=== PATIENT | male | born 1970 | race Caucasian/White ===

== ENCOUNTER 2020-11-26 17:23 | Inpatient (IN) | payer MEDICAID, SELFPAY ==
[2020-11-26 17:24] VITALS: BP 119/84; PULSE 102; RESP 19; TEMP 35.8; O2SAT 90; BMI 23.5
[2020-11-26 19:04] VITALS: BP 111/63; BP 113/83; PULSE 83; PULSE 86; RESP 13; RESP 16; O2SAT 98
[2020-11-26 19:05] LABS: Absolute Lymphocyte Count 3.03 X10^3/uL (0.83-4.51); Absolute Neutrophil Count 5.4 X10^3/uL (2.0-7.7); Basophil# 0.07 X10^3/uL; Basophil% 0.7 % (0-1); Eosinophil# 0.37 X10^3/uL; Eosinophils% 3.8 % (0-5); Hematocrit 46.3 % (40-54); Hemoglobin 15.4 g/dL (13.0-16.5); Lymphocyte # 3.03 X10^3/ul (0.83-4.51); Lymphocyte % 30.9 % (19-41); Mean Corp Hgb Conc 33.3 g/dL (32-36); Mean Corpuscular Hgb 32.2 pg (27.0-32.0); Mean Corpuscular Volume 96.7 fL (80-94); Mean Platelet Vol. 9.4 fl (6.2-12.0); Monocyte# 0.92 X10^3/uL; Monocyte% 9.4 % (0-10); NRBC Flagged by Analyzer 0 % (0-5); Neutrophil # 5.38 X10^3/uL (2.7-7.7); Neutrophil % 54.9 % (47-70); Platelet Count 354 K/mm3 (150-450); RBC Distribution Width SD 53.8 fl (35.1-43.9); Red Blood Count 4.79 M/mm3 (4.6-6.2); White Blood Count 9.8 K/mm3 (4.4-11.0)
[2020-11-26] MEDS: Phenobarbital 32.4 MG Tablet 97.2 MG PO (19:09)
[2020-11-26] MEDS: LORazepam 2 MG/ML Syringe 1 MG IV (19:09)
[2020-11-26 19:20] LABS: ALB/GLOB Ratio 0.9 RATIO (0.9-2.4); AST(SGOT) 19 U/L (15-37); Alanine Aminotransfer ALT/SGPT 26 U/L (16-61); Albumin, Serum 3.7 g/dL (3.2-5.0); Alkaline Phosphatase 67 U/L (45-117); Anion Gap 6 (5-15); BUN 5 mg/dL (7-18); BUN/Creat Ratio 6.1 RATIO (10-20); Calcium,Total 8.8 mg/dL (8.5-10.1); Chloride 100 mmol/L (98-107); Creatinine, Serum 0.81 mg/dL (0.70-1.30); EST Glomerular Filtration Rate 106 mL/min (>60); Est Glom Filt Rate - Afr Amer 128 mL/min (>60); Estimated Creatinine Clearance 106.68 ml/min; Globulin 4.1 g/dL (2.2-4.2); Glucose 76 mg/dL (74-106); Potassium 3.4 mmol/L (3.5-5.1); Protein, Total 7.8 g/dL (6.4-8.2); Sodium Level 135 mmol/L (136-145)
[2020-11-26 19:32] LABS: Alcohol, Blood (Medical)-Serum < 3.0 mg/dL
[2020-11-26 20:07] LABS: International Normalized Ratio 1.1; Prothrombin Time (Protime)PT. 13.1 SECONDS (11.7-14.9)
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
[2020-11-26 20:46] LABS: Amphetamine Urine VISTA POSITIVE (<1000 ng/mL); Barbiturate Urine VISTA NEGATIVE (< 200 ng/mL); Benzodiazepine Urine VISTA NEGATIVE (< 200 ng/mL); Cocaine Urine VISTA NEGATIVE (< 300 ng/mL); Ecstacy Urine VISTA NEGATIVE (< 500 ng/mL); Methadone Urine VISTA NEGATIVE (< 300 ng/mL); PCP Urine VISTA NEGATIVE (< 25 ng/mL); THC Urine VISTA POSITIVE (< 50 ng/mL); Vista UDS pH Range 6
--- NOTE | 2020-11-26 20:51 | VDLE_ITS ---
Reason For Study: Swelling Procedure LEFT This is a venous duplex using B-mode, color GSV is normal. flow and spectral Doppler. CFV is compressible, spontaneous, phasic, Exam performed portable in patient room. competent, and demonstrates normal A preliminary report was called and/or faxed augmentation. to [facility]. FV is compressible, spontaneous, phasic, competent and demonstrates normal augmentation. POP V is compressible, spontaneous, phasic, competent and demonstrates normal augmentation. T/P Trunk is compressible. PTV is compressible. LT PerV is compressible. Nonvascularized structure noted in the left popliteal space that measures approximently 1.27 x 1.18 x 4.04 cm. VL/Venous Duplex US, Unilateral Interpretation Summary There is no evidence of left lower extremity deep vein thrombosis. Left great s aphenous vein appears patent and compressible segmentally. None vascular left popliteal space cystic structure 1.27 x 1.18 x 4.04 cm consistent with a Palacios's cyst. Clinical correlation would be appropr iate. Ordering Physician: Tony Jay Performed By: Rossy Roca RVT
[2020-11-26 21:02] VITALS: BP 103/70; PULSE 83; RESP 14; TEMP 35.8; O2SAT 97
[2020-11-26 21:27] VITALS: BMI 23.4
--- NOTE | 2020-11-26 21:28 | CM.ED ---
SOCIAL WORK Referral Source: Self-referral Reason for Consult: Substance Abuse- requesting detox from alcohol and heroin Patient presents to ER for detox. Patient reported last drink was at 2am. Patient admitted to snorting heroin and fentanyl. Patient completed RAMP agreement with nursing and denies any questions or concerns. Call to [facility] Treatment NavigatorAleyda to update on patient's admission. Plan: Admit to RAMP Eze Tamez, INCIDENT RESPONSE LEAD, CONTINUOUS MINER OPERATOR HELPER
[2020-11-26 21:35] VITALS: BP 110/74; PULSE 84; RESP 16; TEMP 36.9; O2SAT 97
[2020-11-26] MEDS: Buprenorphine HCl 2 MG TAB.SUBL SL (22:43)
[2020-11-26] MEDS: Phenobarbital 32.4 MG Tablet 64.8 MG PO (22:43)
[2020-11-27] VITALS (7 sets, daily range): BP systolic 114–128; BP diastolic 68–80; PULSE 76–91; RESP 16–18; TEMP 36.6–37; O2SAT 96–100
[2020-11-27] MEDS: Phenobarbital 32.4 MG Tablet 64.8 MG PO ×6 (03:05→22:34)
[2020-11-27] MEDS: Buprenorphine HCl 2 MG TAB.SUBL SL ×3 (06:43→22:34)
--- NOTE | 2020-11-27 07:14 | PCM.PN.HOSP ---
Subjective Subjective No new issues overnight since admission. CIWA scores this morning at around 12 Objective Data Objective Data Vital Signs: Vital Signs Temp Pulse Resp BP Pulse Ox 98.1 F 91 18 125/80 H 98 11/27/20 06:37 11/27/20 06:37 11/27/20 06:37 11/27/20 06:37 11/27/20 06:37 Oxygen Delivery Method Room Air Weight: 158 lb 8.198 oz Body Mass Index (BMI) 23.4 Intake & Output: Intake and Output for Last 24 Hours 11/26/20 11/27/20 11/28/20 03:59 03:59 03:59 Output Total 600 / 600 Balance -600 / -600 Lab / Micro Data Result Diagrams: 11/26/20 18:50 11/26/20 18:50 Labs: Laboratory Results - last 24 hr 11/26/20 18:50: WBC 9.8, RBC 4.79, Hgb 15.4, Hct 46.3, MCV 96.7 H, MCH 32.2 H, MCHC 33.3, RDW Std Deviation 53.8 H, RDW Coeff of Vincenzo 15.0 H, Plt Count 354, MPV 9.4, Immature Gran % (Auto) 0.300, Neut % (Auto) 54.9, Lymph % (Auto) 30.9, Hamblen % (Auto) 9.4, Eos % (Auto) 3.8, Baso % (Auto) 0.7, Absolute Neuts (auto) 5.4, Absolute Lymphs (auto) 3.03, Nucleated RBC % 0 11/26/20 18:50: PT 13.1, INR 1.1 11/26/20 18:50: Sodium 135 L, Potassium 3.4 L, Chloride 100, Carbon Dioxide 29.0, Anion Gap 6, BUN 5 L, Creatinine 0.81, Estim Creat Clear Calc 106.68, Est GFR (MDRD) Af Amer 128, Est GFR (MDRD) Non-Af 106, BUN/Creatinine Ratio 6.1 L, Glucose 76, Calcium 8.8, Total Bilirubin 0.40, AST 19, ALT 26, Alkaline Phosphatase 67, Total Protein 7.8, Albumin 3.7, Globulin 4.1, Albumin/Globulin Ratio 0.9 11/26/20 18:50: Ethyl Alcohol < 3.0 11/26/20 20:17: Urine Opiates Screen NEGATIVE, Urine Methadone Screen NEGATIVE, Ur Barbiturates Screen NEGATIVE, Ur Phencyclidine Scrn NEGATIVE, Ur Amphetamines Screen POSITIVE H, U Methamphetamin-MDMA NEGATIVE, U Benzodiazepines Scrn NEGATIVE, Urine Cocaine Screen NEGATIVE, U Cannabinoids Screen POSITIVE H, Ur Drug Screen Comment Rhythm Strip Rhythm Strip: Sinus Tach Rate: 105 Ectopy: None Physical Exam Const alert, oriented x3 and no apparent distress General Appearance: cooperative HEENT normocephalic and moist oral mucous membranes Eyes PERRL, EOMs intact bilaterally and conjunctivae normal Neck supple and no JVD Resp normal respiratory effort, no retractions, no use of accessory muscles and clear to auscultation bilaterally Auscultation: Negative for crackles, rales, rhonchi or wheezes Cardio regular rate, regular rhythm, S1 normal heart sound, S2 normal heart sound and no murmurs GI soft to palpation, non-tender and non-distended; Negative for hepatosplenomegaly Extremity General Extremity: edema left; Negative for clubbing or cyanosis Skin no rashes or lesions noted Neuro no focal motor deficits and no sensory deficits noted Psych Activity / Motor Behavior: restless Assessment & Plan Assessment/Plan (1) Alcohol withdrawal: QUALIFIERS: Complication of substance-induced condition: uncomplicated Qualified Code(s): F10.230 - Alcohol dependence with withdrawal, uncomplicated (2) Opiate dependence: QUALIFIERS: Substance use status: uncomplicated Qualified Code(s): F11.20 - Opioid dependence, uncomplicated (3) Tobacco abuse: PLAN: 1. Acute alcohol and opiate withdrawal/tobacco abuse -Continue with alcohol and opiate withdrawal protocols -Recently came out of rehab 3 weeks ago -Follow-up with 180 -Continue with nicotine patch, counseled on cessation 2. Left leg swelling -Ultrasound of the leg is pending DVT: Lovenox Charges/Coding Visit Charges Inpatient E&M: 44628 Subs Hosp L2
[2020-11-27] MEDS: Enoxaparin 40 MG/0.4 ML Syringe SC (08:42)
[2020-11-27] MEDS: Thiamine Hydrochloride 100 MG Tablet PO (08:42)
[2020-11-27] MEDS: Folic Acid 1 MG Tablet PO (08:42)
--- NOTE | 2020-11-27 10:02 | ADDICTION ---
This comic book writer attempted to meet with PT. PT requested to complete required assessments at next visit on 11/28/20. This comic book writer will attemp at next visit.
[2020-11-27] MEDS: Dicyclomine 10 MG Capsule 20 MG PO (11:38)
[2020-11-27] MEDS: Gabapentin 300 MG Capsule PO ×2 (11:38→19:19)
[2020-11-27] MEDS: Methocarbamol 750 MG Tablet 1500 MG PO ×2 (11:38→19:19)
[2020-11-27] MEDS: Ondansetron 8 MG Tablet PO (11:38)
[2020-11-27] MEDS: hydrOXYzine PAM 25 MG Capsule 50 MG PO ×2 (11:38→19:19)
--- NOTE | 2020-11-27 14:36 | CHAPLAIN ---
Type of Pastoral Visit ___ Initial Visit ___ Follow-up Visit ___ On-call Visit ___ General Patient Visit ___ Spiritual Assessment ___ Family Conference ___ Bereavement ___ Rapid Response ___ Code Blue ___ Other (describe below) Pastoral Care Referral From ___ Patient ___ Family ___ Nurse ___ Physician ___ Platform Engineer ___ Surgical Scrub Technician ___ Other (describe below) Sacrament/Intervention ___ Active listening ___ Anointing ___ Druze ___ Bereavement ___ Communion ___ Dipika exploration ___ ___ Life review ___ Prayer ___ Reconciliation ___ Sacrament of Sick ___ Supportive presence ___ Wedding ___ Other (describe below) Pastoral Comments patient is sleeping and did not arouse to his name; left a calling card and will try again tomorrow to visit
[2020-11-28 02:00] VITALS: BP 137/91; PULSE 77; RESP 16; TEMP 36.6; O2SAT 98
[2020-11-28] MEDS: Phenobarbital 32.4 MG Tablet 64.8 MG PO ×6 (04:04→23:28)
[2020-11-28] MEDS: Methocarbamol 750 MG Tablet 1500 MG PO ×3 (04:09→20:34)
[2020-11-28] MEDS: Buprenorphine HCl 2 MG TAB.SUBL SL ×3 (06:33→23:28)
[2020-11-28 08:00] VITALS: BP 113/78; PULSE 80; RESP 18; TEMP 37.2; O2SAT 92
[2020-11-28] MEDS: Enoxaparin 40 MG/0.4 ML Syringe SC (10:01)
[2020-11-28] MEDS: Thiamine Hydrochloride 100 MG Tablet PO (10:01)
[2020-11-28] MEDS: Folic Acid 1 MG Tablet PO (10:01)
[2020-11-28] MEDS: cloNIDine HCl 0.1 MG Tablet PO (10:05)
[2020-11-28] MEDS: hydrOXYzine PAM 25 MG Capsule 50 MG PO ×2 (10:05→15:28)
[2020-11-28] MEDS: Gabapentin 300 MG Capsule PO (10:05)
--- NOTE | 2020-11-28 10:29 | PN.HOSP_ITS ---
Subjective Subjective Doing well, no issues overnight. Objective Data Objective Data Vital Signs: Vital Signs Temp Pulse Resp BP Pulse Ox 99.0 F 80 18 113/78 92 11/28/20 08:00 11/28/20 08:00 11/28/20 08:00 11/28/20 08:00 11/28/20 08:00 Oxygen Delivery Method Room Air Weight: 158 lb 8.198 oz Body Mass Index (BMI) 23.4 Intake & Output: Intake and Output for Last 24 Hours 11/27/20 11/28/20 11/29/20 03:59 03:59 03:59 Intake Total 900 / 900 200 / 200 Output Total 1125 / 1125 Balance -225 / -225 200 / 200 Medical Nutrition Assessment Dietitian: Nutrition Therapy Diagnosis Start: 11/27/20 12:01 Freq: Status: Active Protocol: Document 11/27/20 12:01 (Rec: 11/27/20 12:01 [id number]) Nutrition Malnutrition Evidence of Malnutrition Exists No Intake Problem Excessive Alcohol Intake Etiology r/t alcohol dependence Signs/Symptoms as evidenced by pt report of consuming 1 case of beer per day. Status Active Problem Inadequate Oral Intake Etiology r/t inadequate protein/calorie intake d/t alcohol and drug abuse Signs/Symptoms as evidenced by pt report of decreased appetite and consumption of ~1 meal per day . Status Active Problem Recommendation Dietitian Recommendations/Changes Continue regular/general diet. Will discontinue ensure enlive 120mL PO 4x/day- pt not interested in supplement at this time. Lab / Micro Data Result Diagrams: 11/26/20 18:50 11/26/20 18:50 Radiography Diagnostic Testing: Radiology Impression Venous Doppler Study 11/26/20 20:51 Interpretation Summary There is no evidence of left lower extremity deep vein thrombosis. Left great saphenous vein appears patent and compressible segmentally. None vascular left popliteal space cystic structure 1.27 x 1.18 x 4.04 cm consistent with a Palacios's cyst. Clinical correlation would be appropriate. Ordering Physician: Tony Jay Performed By: Rossy Roca RVT Rhythm Strip Rhythm Strip: Sinus Tach Rate: 105 Ectopy: None Physical Exam Const alert, oriented x3 and no apparent distress General Appearance: cooperative HEENT normocephalic and moist oral mucous membranes Eyes PERRL, EOMs intact bilaterally and conjunctivae normal Neck supple and no JVD Resp normal respiratory effort, no retractions, no use of accessory muscles and clear to auscultation bilaterally Auscultation: Negative for crackles, rales, rhonchi or wheezes Cardio regular rate, regular rhythm, S1 normal heart sound, S2 normal heart sound and no murmurs GI soft to palpation, non-tender and non-distended; Negative for hepatosplenomegaly Extremity no clubbing, cyanosis or edema General Extremity: edema left; Negative for clubbing or cyanosis Skin no rashes or lesions noted Neuro no focal motor deficits and no sensory deficits noted Psych Activity / Motor Behavior: restless Assessment & Plan Assessment/Plan (1) Alcohol withdrawal: QUALIFIERS: Complication of substance-induced condition: uncomplicated Qualified Code(s): F10.230 - Alcohol dependence with withdrawal, uncomplicated (2) Opiate dependence: QUALIFIERS: Substance use status: uncomplicated Qualified Code(s): F11.20 - Opioid dependence, uncomplicated (3) Tobacco abuse: PLAN: 1. Acute alcohol and opiate withdrawal/tobacco abuse -Continue with alcohol and opiate withdrawal protocols -Recently came out of rehab 3 weeks ago -Follow-up with 180 -Continue with nicotine patch, counseled on cessation 2. Left leg swelling -Ultrasound of his leg was negative for DVT DVT: Lovenox Charges/Coding Visit Charges Inpatient E&M: 40040 Subs Hosp L2
--- NOTE | 2020-11-28 11:54 | ADDICTION ---
This report writer met with PT to conduct ASAM, MSE, AUDIT, DUDIT assessments and to plan for d/c. PT A+Ox4 and participated actively. All assessments completed, and DP placed in PT's chart. PT plans to f/u with individual counselor at [facility] in [place] for follow-up counseling services. PT did not indicate a need for transportation post d/c from [facility].
[2020-11-28 14:00] VITALS: BP 94/73; PULSE 79; RESP 18; TEMP 36.8; O2SAT 96
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
[2020-11-28 20:31] VITALS: BP 107/69; PULSE 76; RESP 15; TEMP 36.7; O2SAT 98
[2020-11-29 02:31] VITALS: BP 119/74; PULSE 77; RESP 16; TEMP 36.9; O2SAT 97
[2020-11-29] MEDS: Phenobarbital 32.4 MG Tablet 64.8 MG PO (04:03)
[2020-11-29 07:57] VITALS: O2SAT 96
[2020-11-29] MEDS: hydrOXYzine PAM 25 MG Capsule 50 MG PO (09:04)
[2020-11-29] MEDS: Thiamine Hydrochloride 100 MG Tablet PO (09:05)
[2020-11-29] MEDS: Folic Acid 1 MG Tablet PO (09:05)
--- NOTE | 2020-11-29 10:23 | PCM.DC ---
Discharge Instructions Diet Discharge Diet: No restrictions Dressing / Incision Call your doctor if you observe: Fever of 101 or Higher, Shortness of breath, Dizziness, Swelling in the ankles, Chest pain and Increased palpitations (irregular heartbeat) Follow Up Care Test Results: Test results from this visit will be discussed in further detail at your follow-up appointment, if applicable. Discharge Plan Admission Admit Date/Time: 11/26/20 20:29 Attending Provider: Mckinley Tejeda Discharge Orders/Prescriptions Prescriptions: Continued gabapentin [Neurontin] 800 mg Tablet 800 mg PO BID RF: 0 atorvastatin 20 mg Tablet 20 mg PO DAILY RF: 0 aspirin 81 mg Tablet 81 mg PO DAILY RF: 0 amlodipine 2.5 mg Tablet 2.5 mg PO DAILY RF: 0 duloxetine 30 mg Capsule,Delayed Release(Dr/Ec) 30 mg PO BID RF: 0 Discontinued oxycodone 20 mg Tablet 20 mg PO Q4H RF: 0 Referrals / Follow Up: MANUELITO TOBIAS [Other] MANUELITO TOBIAS [Other] Disposition Disposition (needs filled in before D/C Order can be placed): Home, Self Care
[2020-11-29 11:00] VITALS: BP 107/80; PULSE 81; RESP 18; TEMP 37.2; O2SAT 93
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
== END 2020-11-29 11:32 | disposition home or self-care (01) | DRG 773 ==
LOC: ED 20:22 → MS3 20:54
PROVIDERS: Admitting Provider Hospitalist; Emergency Provider Emergency Medicine; Visit Provider Family Medicine
DX: F11.23 Opioid dependence with withdrawal (principal); F10.230 Alcohol dependence with withdrawal, uncomplicated; F17.210 Nicotine dependence, cigarettes, uncomplicated; I10 Essential (primary) hypertension; G89.29 Other chronic pain; M19.90 Unspecified osteoarthritis, unspecified site; J44.9 Chronic obstructive pulmonary disease, unspecified; G47.30 Sleep apnea, unspecified; I25.10 Atherosclerotic heart disease of native coronary artery without angina pectoris; F32.9 Major depressive disorder, single episode, unspecified; Z79.899 Other long term (current) drug therapy; E87.1 Hypo-osmolality and hyponatremia; E87.6 Hypokalemia; M79.89 Other specified soft tissue disorders
CPT/HCPCS: 80053; 80307; 82077; 85025; 85610; 93971; 97802; 99284; A4216